=== PATIENT | male | born 1995 | race Two or more races ===

== ENCOUNTER 2024-12-04 20:04 | Emergency (ER) | payer OTHER ==
[~2024-12-04] VITALS: Ht 172.7 cm; Wt 61.7 kg
[2024-12-04] MEDS ORDERED: CEFTRIAXONE SODIUM 1,000 MG VIAL IM STA (21:36)
[2024-12-04] MEDS ORDERED: AMOX1TAB5 PO (21:40)
== END 2024-12-04 22:15 | disposition home or self-care (01) ==
LOC: ER 20:04
DX: S91.312A Laceration without foreign body, left foot, initial encounter (principal); W45.8XXA Other foreign body or object entering through skin, initial encounter; Y93.89 Activity, other specified; Y92.828 Other wilderness area as the place of occurrence of the external cause; Y99.8 Other external cause status; R53.81 Other malaise